=== PATIENT | female | born 1940 | race Caucasian/White ===

== ENCOUNTER 2020-04-21 14:04 | Inpatient (IN) | payer OTHER, MEDICARE, SELFPAY ==
[~2020-04-21] VITALS: Ht 160 cm; Wt 76.2 kg
--- NOTE | 2020-04-21 14:29 | NUR ---
EKG IN PROGRESS
--- NOTE | 2020-04-21 15:12 | NUR ---
PT NOTED AMBULATORY TO ER BED WITH STEADY GAIT, NO AD NOTED.
--- NOTE | 2020-04-21 15:14 | NUR ---
PT BIB DAUGHTER C/O RUQ PAIN X 3DAYS AND N/V X 1DAY. PT DENIES CP OR FURTHER INJURY AT THIS TIME, NO AD NOTED. WILL CONTINUE TO MONITOR.
--- NOTE | 2020-04-21 15:39 | NUR ---
SPOKE WITH PTS DAUGHTER KEY [phone] "ONLY ALLERGY MY MOM HAS IS SHRIMP".
--- NOTE | 2020-04-21 15:56 | NUR ---
STRAIGHT CATH PERFORMED BY AMY MARTÍNEZ AT THIS TIME. PT TOLERATED WELL.
[2020-04-21 16:01] LABS: BASOPHIL % 0.2 % (0-2); PLATELET COUNT 277 x10^3mcL (130-400); RED CELL DISTRIBUTION WIDTH 14.5 % (11.5-14.5)
[2020-04-21 16:16] LABS: microscopic required? YES; urine erythrocyte 2+ (NEGATIVE)
[2020-04-21 16:22] LABS: ALBUMIN 3.4 g/dL (3.4-5.0); ALKALINE PHOSPHATASE 134 U/L (46-116); ALT/SGPT 31 U/L (14-59); AST/SGOT 30 U/L (15-37); BILIRUBIN TOTAL 0.7 mg/dL (0.20-1.00); CALCIUM 8.3 mg/dL (8.5-10.1); CARBON DIOXIDE 24.2 mmol/L (21-32); CHLORIDE SERUM 85 mmol/L (98-107); CREATININE SERUM 0.9 mg/dL (0.6-1.0); GLUCOSE SERUM 102 mg/dL (74-106); HDL CHOLESTEROL 45 mg/dL (40-60); LIPASE 104 IU/L (73-393); POTASSIUM SERUM 3.2 mmol/L (3.5-5.1); T4(THYROXINE) 8.5 ug/dL (4.7-13.3); TOTAL PROTEIN, SERUM 7.9 g/dL (6.4-8.2)
[2020-04-21 16:30] LABS: CHOLESTEROL 95 mg/dL (<200); SODIUM SERUM 119 mmol/L (136-145)
--- NOTE | 2020-04-21 16:44 | NUR ---
PT RETURNED FROM CT AT THIS TIME, NO AD NOTED.
--- NOTE | 2020-04-21 16:55 | NUR ---
XR AT BEDSIDE FOR CXR AT THIS TIME.
[2020-04-21] MEDS ORDERED: HYDRALAZINE HCL10 MG PO (17:01)
[2020-04-21] MEDS ORDERED: MICROZIDE12.5 MG PO ×2 (17:01→18:56)
[2020-04-21] MEDS ORDERED: TIROSINT13 MCG PO (17:01)
[2020-04-21] MEDS ORDERED: ATORVASTATIN CA10 M1 PO (17:01)
[2020-04-21] MEDS ORDERED: DICLOFENAC EPO1 EACH TD (17:01)
[2020-04-21] MEDS ORDERED: COZAAR25 M1 PO (17:02)
[2020-04-21] MEDS ORDERED: METOPROLOL ER-1 EACH PO (17:02)
--- NOTE | 2020-04-21 17:14 | NUR ---
PT REPORTS 8/10 ADMONIAL PAIN AT THIS TIME. MD SMITH MADE AWARE AND REPORTS "GIVE HER NITRO PO AND IF THAT DOES NOT HELP THEN WE WILL GIVE MORE PAIN MEDS". AWAITING FURTHER ORDERS WILL CONTINUE TO MONITOR.
--- NOTE | 2020-04-21 17:20 | NUR ---
LAB AT BEDSIDE FOR BLOOD CULTURES AT THIS TIME.
--- NOTE | 2020-04-21 17:22 | NUR ---
SPOKE WITH PTS DAUGHTER KEY AND DAUGHTER REPORTS "MY MOM HAD A MINI STROKE LAST YEAR AT [facility] BUT THEY SAID IT REALLY WASNT A STROKE BUT IT WAS. IM NOT SURE".
--- NOTE | 2020-04-21 17:29 | NUR ---
RT AT BEDSIDE FOR ABG AT THIS TIME.
--- NOTE | 2020-04-21 17:45 | NUR ---
MEDICATED PT PER MD ORDERS, PLEASE SEE EMAR
[2020-04-21 17:58] LABS: MAGNESIUM 1.6 mg/dL (1.8-2.4); PHOSPHOROUS 3.3 mg/dL (2.5-4.9)
[2020-04-21 18:01] LABS: CHOLESTEROL/HDL RATIO 2.1
[2020-04-21 18:02] LABS: C REACTIVE PROTEIN 0.3 mg/dL (<=0.9)
--- NOTE | 2020-04-21 18:05 | NUR ---
MEDICATED PT AT THIS TIME, PT TOLERATED WELL. WILL CONTINUE TO MONITOR.
[2020-04-21] MEDS ORDERED: XARELTO20 M1 PO (18:55)
[2020-04-21] MEDS ORDERED: ATORVASTATIN CA40 M1 PO (18:56)
[2020-04-21] MEDS ORDERED: HYDRALAZINE HCL25 MG PO (18:56)
[2020-04-21] MEDS ORDERED: LEVOXYL0.05 MG PO (18:57)
--- NOTE | 2020-04-21 19:12 | NUR ---
[place] GIVEN TO ELOISE MARTÍNEZ. RN TO ASSUME CARE OF PT AT THIS TIME.
[2020-04-21 20:13] LABS: CALCIUM 7.4 mg/dL (8.5-10.1); CARBON DIOXIDE 26.1 mmol/L (21-32); CHLORIDE SERUM 88 mmol/L (98-107); CREATININE SERUM 0.9 mg/dL (0.6-1.0); GLUCOSE SERUM 136 mg/dL (74-106)
[2020-04-21 20:23] LABS: POTASSIUM SERUM 2.7 mmol/L (3.5-5.1); SODIUM SERUM 120 mmol/L (136-145)
--- NOTE | 2020-04-21 21:00 | NUR ---
DR IVORY (RESIDENT ) WAS NOTIFIED RE THE POTASSIUM AND SODIUM.
--- NOTE | 2020-04-21 21:42 | NUR ---
PATIENT IS SLEEPING, BENDING HER ARM, THE IV IS CONSTANTLY BEEPING. FLUSHED WITH SALINE, LINE IS PATENT. SALINE LOCK INSERTED IN THE RIGHT HAND #20 ANGIO . ANTIBIOTIC SWITCH TO THE HAND SITE.
--- NOTE | 2020-04-21 21:44 | NUR ---
PATIENT IS WAIIT FOR ADMIT BED
--- NOTE | 2020-04-21 22:21 | NUR ---
REPORT WAS GIVEN TO [facility]. PATIENT WILL BE TRANSPORTED TO ROOM 209B. NURSE WILL CALL WHEN THE ROOM IS READY.
--- NOTE | 2020-04-21 23:06 | NUR ---
PATIENT IS SLEEPING, NO DISTRESS.
--- NOTE | 2020-04-21 23:17 | NUR ---
RECEIVED PT FROM MAURICIO HENDRICKS. ALL QUESTIONS/CONCERNS ADDRESSED. PT IS RESTING IN BED WITH EYES CLOSED. NO ACUTE DISTRESS NOTED AT THIS TIME. BED IN LOWEST POSITION, CALL LIGHT WITHIN REACH. WILL CONTINUE TO MONITOR.
--- NOTE | 2020-04-21 23:17 | NUR ---
RECEIVED PT VIA [facility] FROM E/D, ACCOMPANIED BY RN AND TRANSPORTER. PT A/A/O X 4, CALM, COOPERATIVE TO CARE; WEARS GLASSES (W/ PT); PT IS MOSTLY BURMESE SPEAKING; MAURICIO MCDONALD, BY BEDSIDE FOR TRANSLATION. ON TELE # 17, AFIB, HR 70, DENIES CHEST PAIN OR DISCOMFORT AT THIS TIME. TRUDY BASES DIM, CHEST RISING EVENLY, 1LNC, 100%, NO ACUTE RESPIRATORY DISTRESS NOTED. ABD SOFT, ROUND, NON-TENDER, NORMOACTIVE BOWEL SOUNDS X 4 QUADS, LAST BM 04/21/2020, LOOSE; WEARS FULL UPPER AND LOWER DENTURES. POOR PO INTAKE > 3DAYS. AMBULATORY, NO GAIT OR BALANCE IMPAIRMENT NOTED WHEN WALKING FROM GURNEY TO BED. IV SITE RAC 18G AND RH 20G, BOTH CDI. ORIENTED PT TO ROOM, BED CONTROLS, CALL LIGHT SYSTEM. SIDE RAILS UP X 2, BED IN LOW POSITION. ON CONTACT/DROPLET PRECAUTION D/T R/O COVID-19. WILL ENDORSE TO MAURICIO MCDONALD.
--- NOTE | 2020-04-21 23:30 | NUR ---
PATIENT TRANSPORTED TO ROOM 209A
[2020-04-22] VITALS (7 sets, daily range): BP systolic 101–116; BP diastolic 49–74
--- NOTE | 2020-04-22 00:27 | NUR ---
UNABLE TO START HEPARIN ORDER. AWAITING DR. IVORY FINAL ORDERS.
--- NOTE | 2020-04-22 00:40 | NUR ---
RECEIVED CALL FROM LAB WITH CRITICAL LAB VALUE OF 0.167 TROPONIN LEVEL.
--- NOTE | 2020-04-22 02:14 | NUR ---
PATIENT RESTED INTERMITTENTLY WITH NO ACUTE DISTRESS. HEPARIN DRIP WAS STARTED ON RIGHT HAND 20 GAUGE IV. NORMAL SALINE 100ML/HR IN RAC 18 GAUGE IV. PT REMAINS ON 1L NC, DENIES SOB AT THIS TIME. ALL COMFORT CARE ACCOUNTED FOR AT THIS TIME. BED IN LOWEST POSITION, CALL LIGHT WITHIN REACH. WILL CONTINUE TO MONITOR.
--- NOTE | 2020-04-22 05:26 | NUR ---
PATIENT RESTED INTERMITTENTLY WITH EYES CLOSED THROUGHOUT THE NIGHT. PT REMAINS ON 1L NC, DENIES SOB AT THIS TIME. PATIENT DENIES CHEST PAIN AT THIS TIME WELL. PT HAS NS 100 ML/HR RUNNING ON RAC IV AND HEPARIN DRIP RUNNING ON RIGHT HAND IV. STAT PTT LAB WAS ORDERED FOR THIS MORNING. NO ACUTE CHANGES HAD AT THIS TIME IN STATUS. ALL COMFORT CARE ACCOUNTED FOR. BED IN LOWEST POSITION, CALL LIGHT WITHIN REACH. WILL CONTINUE TO MONITOR UNTIL APPROPRIATE TO ENDORSE TO DAYSHIFT NURSE.
--- NOTE | 2020-04-22 07:20 | NUR ---
ENDORSED CARE TO DAYSHIFT NURSE. ALL QUESTIONS/CONCERNS ADDRESSED.
--- NOTE | 2020-04-22 07:30 | NUR ---
RECEIVED PT FROM TAMARA MARTÍNEZ. PT AAOX4. PT ON TELE #17. PT DENIES CHEST PAIN. PT ON 2LNC W/ NO SOB OR DISTRESS NOTED AT THIS TIME. PT DENIES PAIN AT THIS TIME. IV TO RFA, W/ 100ML/HR; IV TO RH, HEPARIN DRIP RUNNING @ 900 UNITS/HR. PT IS STABLE W/ NO DISTRESS NOTED AT THIS TIME. ALL SAFETY AND COMFORT MEASURES IN PLACE. BED IN LOW POSITION, 2 SIDE RAILS UP. CALL LIGHT WITH IN REACH. ALL QUESTIONS AND CONCERNS ADDRESSED. WILL CONTINUE TO MONITOR PT.
[2020-04-22 08:38] LABS: BASOPHIL % 0.3 % (0-2); PLATELET COUNT 238 x10^3mcL (130-400); RED CELL DISTRIBUTION WIDTH 14.5 % (11.5-14.5)
--- NOTE | 2020-04-22 09:19 | NUR ---
RECEIVED CRITICAL TROP 0.128, ENDURSE TO PRIMARY NURSE TO F/U WITH .
--- NOTE | 2020-04-22 10:44 | NUR ---
REPORTED TROP 0.[address] BEEBE. ALL QUESTIONS AND CONCERNS ADDRESSED. NO FURTHER ORDERS RECIEVED. WILL CONTINUE TO MONITOR PT.
--- NOTE | 2020-04-22 10:51 | NUR ---
RECEIVED CRITICAL LAB FROM ÁLVARO HERNÁNDEZ RN. FOLLOWED HEPARIN DRIP PROTOCOL. PTT LAB ORDERED FOR @2698.
--- NOTE | 2020-04-22 10:52 | NUR ---
RECEIVED CRITICAL PTT 52.4, RESULTS GIVEN TO PRIMARY NURSE.
[2020-04-22 10:53] LABS: CALCIUM 7.9 mg/dL (8.5-10.1); CARBON DIOXIDE 25.5 mmol/L (21-32); CHLORIDE SERUM 90 mmol/L (98-107); CREATININE SERUM 0.8 mg/dL (0.6-1.0); GLUCOSE SERUM 84 mg/dL (74-106); MAGNESIUM 1.8 mg/dL (1.8-2.4); PHOSPHOROUS 2.9 mg/dL (2.5-4.9); POTASSIUM SERUM 3.4 mmol/L (3.5-5.1)
[2020-04-22 10:56] LABS: SODIUM SERUM 123 mmol/L (136-145)
--- NOTE | 2020-04-22 11:08 | NUR ---
DR BEEBE NOTIFIED ABOUT SODIUM 123. NO FURTHER ORDERS RECEIVED. ALL QUESTIONS AND CONCERNS ADDRESSED. ALL NEEDS MET AT THIS TIME. WILL CONTINUE TO MONITOR PT.
--- NOTE | 2020-04-22 16:00 | NUR ---
HEPARIN DRIP D/C AT THIS TIME
--- NOTE | 2020-04-22 19:10 | NUR ---
REPORT GIVEN TO TAMARA MARTÍNEZ. PT REMAINED STABLE THROUGHOUT MY SHIFT. ALL QUESTIONS AND CONCERNS ADDRESSED. ALL NEEDS MET AT THIS TIME. ALL CARES ENDORSED.
--- NOTE | 2020-04-22 19:40 | NUR ---
RECEIVED PT FROM [facility] NURSE, SYRIAC SPEAKING. PT DENIES HEADACHE/NAUSEA/DIZZINESS AT THIS TIME. PT IS ON TELE #17, AFIB, DENIES CHEST PAIN AT THIS TIME. PULSES ARE EQUAL BILATERALLY, NO EDEMA NOTED, ON XARELTO. PT HAS DIMINISHED BILATERAL BASES, ON RA, DENIES SOB AT THIS TIME. NO ACUTE DISTRESS NOTED, EVEN AND UNLABORED BREATHING. ABDOMEN IS SOFT AND ROUND, NO PAIN UPON PALPATION, NORMOACTIVE X4 QUADRANTS, LAST BM 04/22 LOOSE. PT VOIDS FREELY. PT DENIES GENERALIZED WEAKNESS, IS ABLE TO AMBULATE WITHOUT ASSISTANCE. SKIN IS DRY AND INTACT, NO LESIONS NOTED. PT HAS RFA 22 GAUGE IV AND RH 20G IV. IV SITES ARE PATENT, NO REDNESS OR SWELLING AT THIS TIME. PT IS ON ISOLATION FOR COVID 19. ALL COMFORT CARE ACCOUNTED FOR AT THIS TIME. BED IN LOWEST POSITION, CALL LIGHT WITHIN REACH. WILL CONTINUE TO MONITOR.
--- NOTE | 2020-04-22 19:40 | NUR ---
RECEIVED PT FROM [facility] NURSE, BENGALI SPEAKING. PT DENIES HEADACHE/NAUSEA/DIZZINESS AT THIS TIME. PT IS ON TELE #17, AFIB, DENIES CHEST PAIN AT THIS TIME. PULSES ARE EQUAL BILATERALLY, NO EDEMA NOTED, ON XARELTO. PT HAS DIMINISHED BILATERAL BASES, ON RA, DENIES SOB AT THIS TIME. NO ACUTE DISTRESS NOTED, EVEN AND UNLABORED BREATHING. ABDOMEN IS SOFT AND ROUND, NO PAIN UPON PALPATION, NORMOACTIVE X4 QUADRANTS, LAST BM 04/22 LOOSE. PT VOIDS FREELY. PT DENIES GENERALIZED WEAKNESS, IS ABLE TO AMBULATE WITHOUT ASSISTANCE. SKIN IS DRY AND INTACT, NO LESIONS NOTED. PT HAS RFA 22 GAUGE IV AND RH 20G IV. IV SITES ARE PATENT, NO REDNESS OR SWELLING AT THIS TIME. PT HAS NS 50ML/HR RUNNING AT RFA IV. PT IS ON ISOLATION FOR COVID 19. ALL COMFORT CARE ACCOUNTED FOR AT THIS TIME. BED IN LOWEST POSITION, CALL LIGHT WITHIN REACH. WILL CONTINUE TO MONITOR.
--- NOTE | 2020-04-23 01:00 | NUR ---
PT IS RESTING IN BED INTERMITTENTLY WITH EYES CLOSED. PT COMPLAINED OF INTERMITTENT PAIN IN ABDOMEN ARE AND REQUESTED FOR TYLENOL PRN. TYLENOL WAS ADMINISTERED. PT REMAINS ON RA, DENIES SOB. PT IS STILL ISOLATED FOR POSSIBLE COVID-19, AWAITING TEST RESULTS. ALL COMFORT CARE ACCOUNTED FOR AT THIS TIME. BED IN LOWEST POSITION, CALL LIGHT WITHIN REACH.
--- NOTE | 2020-04-23 04:15 | NUR ---
PATIENT COMPLAINED OF 9/10 PAIN IN ABDOMEN. MEDICATED PATIENT WITH NORCO PRN. EDUCATED PATIENT ON POSSIBLE SIDE EFFECTS. ALL COMFORT CARE ACCOUNTED FOR AT THIS TIME. BED IN LOWEST POSITION, CALL LIGHT WITHIN REACH.
[2020-04-23 05:01] VITALS: BP 125/75
--- NOTE | 2020-04-23 05:24 | NUR ---
PT RESTED INTERMITTENTLY WITH EYES CLOSED. PT COMPLAINED OF INTERMITTENT ABDOMINAL PAIN. PATIENT WAS GIVEN TYLENOL PRN AND NORCO PRN. PATIENT TOLERATED MEDICATION WELL. PT REMAINS ON RA, DENIES SOB/CHEST PAIN AT THIS TIME. PT REMAINS ON DROPLET ISOLATION FOR COVID 19. ALL COMFORT CARE ACCOUNTED FOR AT THIS TIME. BED IN LOWEST POSITION, CALL LIGHT WITHIN REACH. WILL CONTINUE TO MONITOR UNTIL APPROPRIATE TO ENDORSE TO DAYSHIFT NURSE.
--- NOTE | 2020-04-23 07:15 | NUR ---
ENDORSED CARE TO DAYSHIFT NURSE. ALL QUESTIONS/CONCERNS ADDRESSED.
--- NOTE | 2020-04-23 07:20 | NUR ---
RECEIVED PT FROM TAMARA MARTÍNEZ. PT AAOX4. PT ON TELE #17. PT DENIES CHEST PAIN. PT ON RA W/ NO SOB OR DISTRESS NOTED AT THIS TIME. PT DENIES PAIN AT THIS TIME. IV TO RFA, HEPLOCKED; IV TO RH, HEPLOCKED. IV CDI AND PATENT. PT IS STABLE W/ NO DISTRESS NOTED AT THIS TIME. ALL SAFETY AND COMFORT MEASURES IN PLACE. BED IN LOW POSITION, 2 SIDE RAILS UP. CALL LIGHT WITH IN REACH. ALL QUESTIONS AND CONCERNS ADDRESSED. WILL CONTINUE TO MONITOR PT.
[2020-04-23 07:35] LABS: BASOPHIL % 0.7 % (0-2); PLATELET COUNT 236 x10^3mcL (130-400)
[2020-04-23 08:04] LABS: C REACTIVE PROTEIN 1.3 mg/dL (<=0.9); CALCIUM 7.5 mg/dL (8.5-10.1); CARBON DIOXIDE 26.8 mmol/L (21-32); CHLORIDE SERUM 91 mmol/L (98-107); CREATININE SERUM 0.8 mg/dL (0.6-1.0); GLUCOSE SERUM 93 mg/dL (74-106); MAGNESIUM 1.8 mg/dL (1.8-2.4); PHOSPHOROUS 3.1 mg/dL (2.5-4.9); POTASSIUM SERUM 3.5 mmol/L (3.5-5.1); RED CELL DISTRIBUTION WIDTH 14.6 % (11.5-14.5)
--- NOTE | 2020-04-23 08:30 | NUR ---
RECEIVED CRITICAL LAB FROM [facility] IN LAB. SODIUM 123. WILL CONTINUE TO MONITOR PT.
[2020-04-23 08:32] LABS: SODIUM SERUM 123 mmol/L (136-145)
--- NOTE | 2020-04-23 08:34 | NUR ---
DR LOPEZ NOTIFIED ABOUT SODIUM 123 VIA [facility]. AWAITING ORDERS.
[2020-04-23 08:39] VITALS: BP 120/77
--- NOTE | 2020-04-23 09:42 | NUR ---
PATIENT'S SON, GARRETT PER PHONE. UPDATED ON PATIENT CONDITION AND CURRENT PLAN OF CARE. PATIENT GAVE PERMISSION FOR ME TO GIVE SON INFORMATION.
--- NOTE | 2020-04-23 10:30 | NUR ---
DR LOPEZ MADE AWARE OF PT C/O OF ABD PAIN TO RLQ. NO FURTHER ORDERS RECEIVED. WILL CONTINUE TO MONITOR PT.
[2020-04-23 14:00] VITALS: BP 93/60
--- NOTE | 2020-04-23 14:15 | NUR ---
IN TO SEE PT. PT IS STABLE W/ NO ACUTE CHANGES TO STATUS AT THIS TIME. ALL QUESTIONS AND CONCERNS ADDRESSED. ALL NEEDS MET. WILL CONTINUE TO MONITOR PT.
[2020-04-23 17:35] VITALS: BP 134/72
--- NOTE | 2020-04-23 19:20 | NUR ---
REPORT GIVEN TO TAMARA MARTÍNEZ. PT REMAINED STABLE THROUGHOUT MY SHIFT W/ NO ACUTE CHANGES TO STATUS. ALL QUESTIONS AND CONCERNS ADDRESSED. ALL NEEDS MET AT THIS TIME. ALL CARES ENDORSED TO ONCOMING RN.
--- NOTE | 2020-04-23 19:30 | NUR ---
RECEIVED PT FROM [facility] NURSE. PT IS AAOX4, DENIES HEADACHE/NAUSEA/DIZZINESS AT THIS TIME, FRISIAN SPEAKING. PT IS TELE #17, AFIB, DENIES CHEST PAIN AT THIS TIME. PULSES ARE EQUAL BILATERALLY, NO EDEMA NOTED, ON XARELTO. PT HAS BILATERAL DIMINISHED BASES, ON RA, DENIES SOB. NO ACUTE DISTRESS NOTED, EVEN AND UNLABORED BREATHING. ABDOMEN IS SOFT AND ROUND, NO PAIN UPON PALPATION. NORMOACTIVE X4 QUADRANTS, LAST BM 04/22. PT VOIDS WITHOUT DIFFICULITY, ABLE TO AMBULATE TO THE RESTROOM WITHOUT ASSISTANCE. SKIN IS DRY AND INTACT, NO LESIONS NOTED. PT REPORTS INTERMITTENT PAIN TO ABDOMEN, DENIES PAIN AT THIS TIME. HAS IV TO RFA AND RH, SITES ARE INTACT, NO REDNESS OR SWELLING NOTED. ALL COMFORT CARE ACCOUNTED FOR AT THIS TIME. BED IN LOWEST POSITION, CALL LIGHT WITHIN REACH. WILL CONTINUE TO MONITOR.
[2020-04-23 21:12] VITALS: BP 150/90
--- NOTE | 2020-04-24 02:14 | NUR ---
PT RESTING INTERMITTENTLY WITH EYES CLOSED. NO ACUTE DISTRESS NOTED AT THIS TIME. PT STATES SHE DOES NOT HAVE ABDOMINAL PAIN AT THIS MOMENT. PT REMAINS ON RA. BED IN LOWEST POSITION, CALL LIGHT WITHIN REACH.
[2020-04-24 04:46] VITALS: BP 169/99
[2020-04-24 06:40] VITALS: BP 119/68
--- NOTE | 2020-04-24 06:50 | NUR ---
PT RESTED INTERMITTENTLY WITH NO ACUTE DISTRESS. PT COMMUNICATED RUQ PAIN, MEDICATED WITH TYLENOL PRN. PATIENT WAS ALSO GIVEN HYDRALAZINE PRN. NO OTHER ACUTE CHANGES IN PATIENTS STATUS AT THIS TIME. BED IN LOWEST POSITION, CALL LIGHT WITHIN REACH. WILL ENDORSE TO DAYSHIFT NURSE.
[2020-04-24 07:04] LABS: CALCIUM 8.2 mg/dL (8.5-10.1); CARBON DIOXIDE 26.3 mmol/L (21-32); CHLORIDE SERUM 93 mmol/L (98-107); CREATININE SERUM 0.9 mg/dL (0.6-1.0); GLUCOSE SERUM 123 mg/dL (74-106); MAGNESIUM 1.9 mg/dL (1.8-2.4); PHOSPHOROUS 2.7 mg/dL (2.5-4.9); POTASSIUM SERUM 3.5 mmol/L (3.5-5.1); SODIUM SERUM 125 mmol/L (136-145)
[2020-04-24 07:09] LABS: BASOPHIL % 0.4 % (0-2); PLATELET COUNT 245 x10^3mcL (130-400); RED CELL DISTRIBUTION WIDTH 14.9 % (11.5-14.5)
--- NOTE | 2020-04-24 09:00 | NUR ---
RECEIVED AWAKE,ALERT AND ORIENTED. SITTING AT THE EDGE OF THE BED. NO SOB NOTED. OM RA SATS 99%. NO DISTRESS. VS WNL. HL PATENT. PT DENIES PAIN OR DISCOMFORT. CALL LIGHT WITHIN REACH.
[2020-04-24 09:02] VITALS: BP 145/78
[2020-04-24 13:20] VITALS: BP 138/73
--- NOTE | 2020-04-24 16:13 | NUR ---
RESTING IN NO DISTRESS, DENIES ANY DISCOMFORT.
[2020-04-24 17:17] VITALS: BP 121/62
--- NOTE | 2020-04-24 18:25 | NUR ---
PT C/O ABD. PAIN. MEDICATED WITH TYLENOL
[2020-04-24 21:41] VITALS: BP 149/89
--- NOTE | 2020-04-24 22:45 | NUR ---
PT SITTING ON THE CHAIR C/O ABD PAIN AND CONSTIPATION , ABD DISTENDED FIRM TO TOUCH , BS ACTIVE X4 . LAST BM WAS 3DAYS AGO PER PT . WILL NOTIFY MD . MEDICATED PT FOR PAIN . TELE AFIB , HL PATENT . CALL LIGHT WITHIN PT'S REACH .
[2020-04-25 04:56] VITALS: BP 114/67
--- NOTE | 2020-04-25 06:30 | NUR ---
POST DULCOLAX NO BM , PT'S REQUESTING FOR ENEMA , WILL ENDORSE TO AM NURSE . TELE AFIB .
[2020-04-25 07:11] LABS: BASOPHIL % 0.5 % (0-2); PLATELET COUNT 229 x10^3mcL (130-400)
[2020-04-25 07:35] LABS: CARBON DIOXIDE 24.4 mmol/L (21-32); CHLORIDE SERUM 98 mmol/L (98-107); CREATININE SERUM 0.9 mg/dL (0.6-1.0); GLUCOSE SERUM 92 mg/dL (74-106); PHOSPHOROUS 3.3 mg/dL (2.5-4.9); POTASSIUM SERUM 3.9 mmol/L (3.5-5.1); SODIUM SERUM 132 mmol/L (136-145)
--- NOTE | 2020-04-25 09:00 | NUR ---
RECEIVED IN NO ACUTE RESP. DISTRESS, AWAKE AND ALERT. ON RA SATS 99%. NO SOB NOTED, NO C/O PAIN AT THIS TIME. VS WNL. AFIB ON TELE WITH HR 71. PT REPORTED HAVING SMALL BM AFTER DULCOLAX SUPP. CALL LIGHT WITHIN REACH. WILL CONTINUE WITH PLAN OF CARE.
[2020-04-25 09:07] VITALS: BP 151/85
--- NOTE | 2020-04-25 09:56 | NUR ---
DR. GIBSON HERE TO SEE PT FOR DR. CARDENAS, ADDED HIM CONSULT FOR HIS TO HAVE ACCESS TO PT PLAN OF CARE.
--- NOTE | 2020-04-25 09:59 | NUR ---
FAMILY CALLED FOR PT'S UPDATE. WANT TO HAVE PT DC'D HOME IF NO NEED TO BE HERE. WILL NOTIFY .
[2020-04-25 12:28] VITALS: BP 118/64
[2020-04-25 16:24] VITALS: BP 154/87
--- NOTE | 2020-04-25 18:48 | NUR ---
GI PREP IN PROGRESS, PT TOLERATING WELL, HAD MULTIPLE BM BUT NOT CLEAR YET. CONSENT FOR EGB/COLONOSCOPY SIGNED AND CHECK LIST STARTED. PT REMAINS IN NO ACUTE DISTRESS. AWAKE AND ALERT. NO CHANGES IN VS. NO C/O PAIN AT THIS TIME. CALL LIGHT WITHIN REACH. WILL BE ENDORSED TO INCOMING SHIFT.
[2020-04-25 19:55] VITALS: BP 140/74
--- NOTE | 2020-04-25 20:00 | NUR ---
PATIENT RECEIVED AWAKE, ALERT, ORIENTED X4, SITTING ON THE CHAIR. RESPIRATION EVEN AND UNLABORED, ON ROOM AIR, ON RT PROTOCOL. SALINE LOCK TO R FOREARM AND R HAND PATENT AND INTACT. ON BOWEL PREPARATION, FOR EGD/COLONOSCOPY IN AM. ON FLUID RESTRICTION AT 1200 ML/DAY. AMBULATORY. SKIN DRY AND INTACT. ON TELE #17, AFIB. WILL CONTINUE TO MONITOR.
[2020-04-26 05:41] VITALS: BP 157/90
--- NOTE | 2020-04-26 06:15 | NUR ---
PATIENT AWAKE IN BED USING HER CELLPHONE. RESPIRATION EVEN AND UNLABORED, ON ROOM AIR. DENIES PAIN. FOR EGD/COLONOSCOPY TODAY. ON NPO EXCEPT MEDS. SALINE LOCK TO RFA AND RH PATENT AND INTACT. INDEPENDENT. ASSISTED WITH NEEDS. SAFETY OBSERVED. PLACED BED IN THE LOWEST POSITION. PLACED CALL LIGHT WITHIN REACH AT ALL TIMES.
[2020-04-26 07:26] LABS: BASOPHIL % 0.4 % (0-2); PLATELET COUNT 277 x10^3mcL (130-400)
[2020-04-26 07:31] LABS: RED CELL DISTRIBUTION WIDTH 15.1 % (11.5-14.5)
[2020-04-26 07:40] LABS: CALCIUM 8.7 mg/dL (8.5-10.1); CARBON DIOXIDE 24.6 mmol/L (21-32); CHLORIDE SERUM 102 mmol/L (98-107); GLUCOSE SERUM 91 mg/dL (74-106); PHOSPHOROUS 3.4 mg/dL (2.5-4.9); SODIUM SERUM 139 mmol/L (136-145)
--- NOTE | 2020-04-26 08:13 | NUR ---
RECEIVED PATIENT FROM NIGHT NURSE. AWAKE, ALERT. APPEARS ORIENTED. MONITOR SHOWING A-FIB; RATE 80'S. RESPIRATIONS REGULAR. NO SOB NOTED. ON ROOM AIR. NPO FOR EGD AND COLONOSCOPY TODAY.
--- NOTE | 2020-04-26 08:29 | NUR ---
REPORT GIVEN TO GI NURSE.
[2020-04-26 08:52] VITALS: BP 150/98
--- NOTE | 2020-04-26 10:12 | NUR ---
AT 0930 - PATIENT TAKEN TO GI LAB FOR EGD AND COLONOSCOPY.
--- NOTE | 2020-04-26 11:12 | NUR ---
Patient back in room following EGD and Colonosocpy under moderate sedation. Awake, alert and oriented. VS WNL. O2 sat 98% on room air. To commence regular diet. Call light within reach.
[2020-04-26 11:14] VITALS: BP 135/81
[2020-04-26 12:16] VITALS: BP 127/57
[2020-04-26 12:18] VITALS: Ht 160 cm; Wt 76.2 kg
--- NOTE | 2020-04-26 12:47 | NUR ---
Taken off droplet isolation as per oders. Patient is COVID negative. Received call from patient's daughter Melonie; updated on condition, completion of EGD, Colonoscopy abd current plan of care.
[2020-04-26] MEDS ORDERED: FER300 PO (13:32)
[2020-04-26] MEDS ORDERED: LOP50 PO (13:33)
[2020-04-26] MEDS ORDERED: ATORVASTATIN CA40 M1 PO (13:33)
[2020-04-26] MEDS ORDERED: COZ25 PO (13:34)
[2020-04-26] MEDS ORDERED: SYN5 PO (13:34)
[2020-04-26] MEDS ORDERED: PEPCID AC20 M2 PO (13:34)
[2020-04-26] MEDS ORDERED: MIRALAX17 GM PO (13:35)
[2020-04-26] MEDS ORDERED: METAMUCIL POWD575 G1 PO (13:36)
[2020-04-26] MEDS ORDERED: LEVAQUIN500 M1 PO (13:38)
--- NOTE | 2020-04-26 15:09 | NUR ---
Pateint for discharge home. Prineted discharge instructions explained to patient's daughter, Melonie per phone. Prescription has been received by patient's pharmacy. Printed instructions provided. Patient Copies of EGD and Colonoscopy pictures given to patient. Taken off cardiac monitoring. IV catheter x 2 removed intact. Prepared for discharge. Sitting in chair, awaiting pick-up.
--- NOTE | 2020-04-26 15:55 | NUR ---
Discharged home with daughter. Taken to car in wheelchair by nurse. DIscharge packet given and explained to daughter.
== END 2020-04-26 15:40 | disposition home health service (06) | DRG 254 ==
LOC: ED 14:04 → DU 21:05
PROVIDERS: Emergency Medicine; Internal Medicine Gastroenterology; Student in an Organized Health Care Education/Training Program; ADMIT Internal Medicine; ATTEND Internal Medicine
PROC: 0DB68ZX Excision of Stomach, Via Natural or Artificial Opening Endoscopic, Diagnostic (ICD-10-PCS; principal; 2020-04-26 08:30)
PROC: 0DBG8ZZ Excision of Left Large Intestine, Via Natural or Artificial Opening Endoscopic (ICD-10-PCS; 2020-04-26 08:30)
DX: K59.00 Constipation, unspecified (principal); I21.A1 Myocardial infarction type 2; J18.9 Pneumonia, unspecified organism; I50.41 Acute combined systolic (congestive) and diastolic (congestive) heart failure; E87.8 Other disorders of electrolyte and fluid balance, not elsewhere classified; I48.20 Chronic atrial fibrillation, unspecified; I11.0 Hypertensive heart disease with heart failure; D64.9 Anemia, unspecified; E87.1 Hypo-osmolality and hyponatremia; E83.42 Hypomagnesemia; K25.9 Gastric ulcer, unspecified as acute or chronic, without hemorrhage or perforation; E03.9 Hypothyroidism, unspecified; E78.00 Pure hypercholesterolemia, unspecified; Z20.828 Contact with and (suspected) exposure to other viral communicable diseases; Z60.2 Problems related to living alone; E78.5 Hyperlipidemia, unspecified; Z66 Do not resuscitate; K21.9 Gastro-esophageal reflux disease without esophagitis; E87.6 Hypokalemia; K44.9 Diaphragmatic hernia without obstruction or gangrene; K57.30 Diverticulosis of large intestine without perforation or abscess without bleeding; Z90.710 Acquired absence of both cervix and uterus; Z90.49 Acquired absence of other specified parts of digestive tract; Z83.3 Family history of diabetes mellitus; Z79.01 Long term (current) use of anticoagulants
CPT/HCPCS: 36600; 43235; 45378; 83880; 87804; 97110-GP; 97116-GP; 97530-GP; C9113; G0378; J0360; J0456; J0696; J1200; J1610; J1644; J2250; J2270; J2310; J2405; J3010; J3490; J3535; J7030; J7050; J7060; Q0092; U0003-CS